=== PATIENT | female | born 1955 | race Hispanic/Latino ===

== ENCOUNTER 2021-05-11 19:03 | Emergency (ER) | payer BC, OTHER ==
--- OUTSIDE RECORDS SUMMARY | 2021-05-11 19:06 | XMS REPORT | Continuity of Care Document ---
:1955 Author Organization [facility] t Address [address] [place] [address] [address] [place] [address] Care Team Providers Name Role Phone Higinio VILLALOBOS Attending Clinician Unavailable Lab, Fam Pob I Attending Clinician Unavailable Yuliya ROY Attending Clinician YULIYA Attending Clinician Unavailable Doctor Unassigned, Name Attending Clinician Unavailable Payers Payer Name Policy Type Policy Number Effective Date Expiration Date S [facility] - [id number] 2019 00:00:00 OUT OF STATE Problems This patient has no known problems. Allergies, Adverse Reactions, Alerts Allergy Allergy Status Severity Reaction(s) Onset Inactive Treating Comm ents Source Name Type Date Date Clinician NO KNOWN Drug Active Univers ALLERGIE Class [facility] Social History Social Habit Start Date Stop Date Quantity Comments Source [facility] to [facility]-CoV-2 [facility] sure [facility] Smoking Status Start Date Stop Date Source Unknown if ever smoked [facility] Medications This patient has no known medications. Procedures This patient has no known procedures. Encounters Start End Encounter Admission Attending Care Care Encounter Source Date/Time Date/Time Type Type Clinicians Facility Department ID 2020-08-05 2020-08-[address] [facility] [id number] Univers 15:50:00 15:50:00 [facility] 2020-07-08 2020-07-[address] [facility] [id number] Univers 15:00:00 15:00:00 HANH [facility] 2020-03-20 2020-03-20 Laboratory Lab, Adc Fam Pob I [facility] [id number] Univers 17:45:26 18:05:26 Only [place], Omayemi [facility] [id number] ity of [place] [id number] Todd as Professio [phone] [facility] [address] 2020-03-20 2020-03-[address] [facility] [id number] Univers 18:00:00 18:00:00 [facility] ity of [facility] 2020-03-20 2020-03-20 Letter Doctor NANCY [id number] [facility] 00:00:00 00:00:00 (Out) Unassigned, [place] [id number] ity of [place] [facility] [id number] Todd as [phone] [place] [id number] [address] Results This patient has no known results.
[2021-05-11 20:59] LABS: Absolute Lymphocytes (CBC) 2.9 K/uL (0.7-4.9); Hematocrit 43.9 % (36.0-45.0); Lymphocytes % 26.8 % (15.3-44.8); MPV 7.9 fL (7.6-11.3); Protime INR 1.09; RBC Red Blood Cell Count 5.02 M/uL (3.86-4.86)
[2021-05-11 21:24] LABS: ALT/SGPT 31 U/L (12-78); AST/SGOT 21 U/L (15-37); Albumin 4.2 g/dL (3.4-5.0); Alkaline Phosphatase 102 U/L (45-117); BUN Blood Urea Nitrogen 16 mg/dL (7-18); Bicarbonate 27 mmol/L (21-32); Bilirubin Direct < 0.1 mg/dL (0-0.2); Bilirubin Total 0.3 mg/dL (0.2-1.0); Glucose Level 107 mg/dL (74-106); Magnesium 2.3 mg/dL (1.8-2.4); NT PRO-BNP 26 pg/mL (<125); Potassium 3.9 mmol/L (3.5-5.1); Protein, Total 8.5 g/dL (6.4-8.2); Sodium Level 141 mmol/L (136-145); Troponin (Emerg Dept Use Only) < 0.02 ng/mL (0.0-0.045)
[2021-05-11 21:41] LABS: SARS-COV-2 RT PCR NEGATIVE (NEGATIVE)
--- NOTE | 2021-05-11 21:51 | RAD REPORT ---
EXAM DESCRIPTION: CT - Head Brain Wo Cont - 05/11/2021 9:04 pm CLINICAL HISTORY: DIZZINESS Headache, hypertension, dizziness COMPARISON: <Comparisons> TECHNIQUE: All CT scans are performed using dose optimization technique as appropriate and may inclu de automated exposure control or mA/KV adjustment according to patient size. FINDINGS: No intracranial hemorrhage, hydrocephalus or extra-axial fluid collection.No areas of brai n edema or evidence of midline shift. The paranasal sinuses and mastoids are clear. The calvarium is intact. IMPRESSION: No acute intracranial abnormality.
--- NOTE | 2021-05-11 21:52 | RAD REPORT ---
EXAM DESCRIPTION: RAD - Chest Single View - 05/11/2021 9:16 pm CLINICAL HISTORY: CONGESTION Chest pain. COMPARISON: No comparisons FINDINGS: Portable technique limits examination quality. The lungs are mildly emphysematous but grossly clear. The heart is normal in size. No displaced fract ures. IMPRESSION: Mild COPD.
[2021-05-11] MEDS ORDERED: NA CHLORIDE 0.9% 500 ML ONE (22:54)
[2021-05-11] MEDS ORDERED: MECLIZINE HCL 12.5 MG TAB ONE (23:01)
[2021-05-11] MEDS ORDERED: ONDANSETRON 4 MG/2 ML VIAL ONE (23:02)
[2021-05-11] MEDS ORDERED: FAMOTIDINE 20 MG/2 ML VIAL IV ONE (23:02)
--- NOTE | 2021-05-11 23:50 | EDPHYS ---
Physician Documentation [facility] Name: Christina Villegas Age: 65 yrs Sex: Female : 1955 Arrival Date: 05/11/2021 Time: 19:10 Bed 13 Private MD: ED Physician Tolu Steven HPI: 05/11 21:47 This 65 yrs old Female presents to ER via Ambulatory with complaints of kdr Dizziness. 21:47 The patient presents with dizziness, generalized weakness, feeling off balance. Onset: kdr The symptoms/episode began/occurred suddenly, at 17:30. Context: occurred on a street or driveway, Patient states that she was walking out of a store where she had been doing some shopping when she suddenly felt dizzy and off balance. She had some nausea but no vomiting. At the same time she also had some mild hunger. She did not experience anything like this before. Since then her symptoms have improved though not entirely resolved. She still feels slightly dizzy. It is exacerbated by movement of her head but she is able to sit and move about without extensive or significant dizziness or discomfort. Modifying factors: The symptoms are alleviated by holding head still. Associated signs and symptoms: The patient has no apparent associated signs or symptoms. Severity of symptoms: At their worst the symptoms were very mild mild in the emergency department the symptoms have improved mildly. Patient's baseline: Neuro: alert and fully oriented, Motor: no deficits, Ambulation: walks without assistance, Speech: normal. The patient has not recently seen a physician. Historical: - Allergies: 20:09 No Known Allergies; bb - Home Meds: 20:09 None [Active]; bb - PMHx: 20:09 None; bb - PSHx: 20:09 None; bb - Immunization history:: Moderna x 3. - Social history:: Smoking status: Patient denies any tobacco usage or history of. ROS: 21:47 Constitutional: Negative for fever, chills, and weight loss, Eyes: Negative for injury, kdr pain, redness, and discharge, Neck: Negative for injury, pain, and swelling, Cardiovascular: Negative for chest pain, palpitations, and edema, Respiratory: Negative for shortness of breath, cough, wheezing, and pleuritic chest pain, Abdomen/GI: Negative for abdominal pain, nausea, vomiting, diarrhea, and constipation, Back: Negative for injury and pain, : Negative for injury, bleeding, discharge, and swelling, MS/Extremity: Negative for injury and deformity, Skin: Negative for injury, rash, and discoloration, Neuro: Negative for headache, weakness, numbness, tingling, and seizure activity. Psych: Negative for depression, anxiety, suicide ideation, homicidal ideation, and hallucinations, Allergy/Immunology: Negative for hives, rash, and allergies, Endocrine: Negative for neck swelling, polydipsia, polyuria, polyphagia, and marked weight changes, Hematologic/Lymphatic: Negative for swollen nodes, abnormal bleeding, and unusual bruising. Exam: 21:26 ECG was reviewed by the Attending Physician. kdr 23:50 Constitutional: This is a well developed, well nourished patient who is awake, alert, kdr and in no acute distress. Head/Face: Normocephalic, atraumatic. Eyes: Pupils equal round and reactive to light, extra-ocular motions intact. Lids and lashes normal. Conjunctiva and sclera are non-icteric and not injected. Cornea within normal limits. Periorbital areas with no swelling, redness, or edema. Neck: Trachea midline, no thyromegaly or masses palpated, and no cervical lymphadenopathy. Supple, full range of motion without nuchal rigidity, or vertebral point tenderness. No Meningismus. Chest/axilla: Normal chest wall appearance and motion. Nontender with no deformity. No lesions are appreciated. Cardiovascular: Regular rate and rhythm with a normal S1 and S2. No gallops, murmurs, or rubs. Normal PMI, no JVD. No pulse deficits. Respiratory: Lungs have equal breath sounds bilaterally, clear to auscultation and percussion. No rales, rhonchi or wheezes noted. No increased work of breathing, no retractions or nasal flaring. Abdomen/GI: Soft, non-tender, with normal bowel sounds. No distension or tympany. No guarding or rebound. No evidence of tenderness throughout. Back: No spinal tenderness. No costovertebral tenderness. Full range of motion. Skin: Warm, dry with normal turgor. Normal color with no rashes, no lesions, and no evidence of cellulitis. MS/ Extremity: Pulses equal, no cyanosis. Neurovascular intact. Full, normal range of motion. Neuro: Awake and alert, GCS 15, oriented to person, place, time, and situation. Cranial nerves II-XII grossly intact. Motor strength 5/5 in all extremities. Sensory grossly intact. Cerebellar exam normal. Normal gait. Psych: Awake, alert, with orientation to person, place and time. Behavior, mood, and affect are within normal limits. Vital Signs: 20:06 BP 176 / 74; Pulse 78; Resp 16 S; Temp 98.6(TE); Weight 70.31 kg (R); Height 5 ft. 6 bb in. (167.64 cm) (R); Pain 0/10; 20:30 BP 182 / 74; Pulse 82; Resp 10; Temp 98.4; Pulse Ox 100% 0 lpm ; Weight 72.57 kg; sv1 Height 5 ft. 2 in. (157.48 cm); Pain 0/10; 22:00 BP 143 / 63; Pulse 76; Resp 11; Pulse Ox 100% 0 lpm ; Pain 0/10; sv1 23:00 BP 138 / 63; Pulse 71; Resp 11; Pulse Ox 100% 0 lpm ; Pain 0/10; sv1 23:00 BP 139 / 60; Pulse 82; Resp 11; Temp 98.5; Pulse Ox 100% 0 lpm ; Pain 0/10; sv1 20:30 Body Mass Index 29.26 (72.57 kg, 157.48 cm) sv1 MDM: 23:49 Patient medically screened. kdr 23:50 Data reviewed: vital signs, nurses notes, lab test result(s), radiologic studies. kdr Counseling: I had a detailed discussion with the patient and/or guardian regarding: the historical points, exam findings, and any diagnostic results supporting the discharge/admit diagnosis, lab results, radiology results, the need for outpatient follow up. ED course: Patient symptoms have completely resolved at the time of discharge. Patient was happy with the care provided and the plan for discharge and follow-up. 05/11 20:28 Order name: Basic Metabolic Panel kdr 05/11 20:28 Order name: CBC with Diff; Complete Time: 21:17 kdr 05/11 20:28 Order name: LFT's kdr 05/11 20:28 Order name: Magnesium kdr 05/11 20:28 Order name: NT PRO-BNP kdr 05/11 20:28 Order name: PT-INR; Complete Time: 21:17 kdr 05/11 20:28 Order name: Troponin (emerg Dept Use Only); Complete Time: 22:02 kdr 05/11 20:28 Order name: XRAY Chest (1 view); Complete Time: 22:02 kdr 05/11 20:28 Order name: Basic Metabolic Panel; Complete Time: 22:02 EDMS 05/11 20:28 Order name: Liver (Hepatic) Function; Complete Time: 22:02 EDMS 05/11 20:28 Order name: Magnesium; Complete Time: 22:02 EDMS 05/11 20:28 Order name: NT PRO-BNP; Complete Time: 22:02 EDMS 05/11 20:49 Order name: CT Head Brain wo Cont; Complete Time: 22:02 kdr 05/11 20:49 Order name: COVID-19/FLU A+B (Document "Date of Onset" if Symptomatic); Complete Time: kdr 22:02 05/11 20:28 Order name: EKG; Complete Time: 20:29 kdr 05/11 20:28 Order name: Cardiac monitoring; Complete Time: 20:28 kdr 05/11 20:28 Order name: EKG - Nurse/Tech; Complete Time: 20:28 kdr 05/11 20:28 Order name: IV Saline Lock; Complete Time: 20:42 kdr 05/11 20:28 Order name: Labs collected and sent; Complete Time: 20:42 kdr 05/11 20:28 Order name: O2 Per Protocol; Complete Time: 20:42 kdr 05/11 20:28 Order name: O2 Sat Monitoring; Complete Time: 20:42 kdr EC:26 Rate is 78 beats/min. Rhythm is regular, Sinus Rhythm with Right bundle branch block. kdr QRS [place] is Normal. IL interval is normal. QRS interval is normal. QT interval is normal. Administered Medications: 22:57 Drug: NS 0.9% 500 ml Route: IV; Rate: bolus; Site: right antecubital; sv1 05/12 00:01 Follow up: IV Status: Completed infusion; IV Intake: 500ml sv1 05/11 23:10 Drug: Zofran (Ondansetron) 4 mg Route: IVP; Site: right antecubital; sv1 05/12 00:06 Follow up: Response: Nausea is decreased sv05/11 23:10 Drug: Pepcid (famotidine) 20 mg Route: IVP; Site: right antecubital; sv1 05/12 00:06 Follow up: Response: No adverse reaction sv1 05/11 23:10 Drug: Meclizine 25 mg Route: PO; sv1 05/12 00:05 Follow up: Response: No adverse reaction; Marked relief of symptoms sv1 Disposition Summary: 05/11/21 23:49 Discharge Ordered Location: Home kdr Problem: new kdr Symptoms: are resolved kdr Condition: Stable kdr Diagnosis - Dizziness and giddiness kdr Followup: kdr - With: Private Physician - When: 2 - 3 days - Reason: If symptoms return, Further diagnostic work-up, Recheck today's complaints, Continuance of care, Re-evaluation by your physician Discharge Instructions: - Discharge Summary Sheet kdr - Dizziness, [id number]-Awjj kdr Forms: - Medication Reconciliation Form kdr - Thank You Letter kdr - Antibiotic Education kdr - Prescription Opioid Use kdr Prescriptions: - Meclizine 25 mg Oral Tablet - take 1 tablet by ORAL route every 8 hours As needed; 30 tablet; Refills: 0, kdr Product Selection Permitted Signatures: Dispatcher [employer] EDTolu Crocker MD MD kdr Chelle Jack RN RN bb Tutu Strickland RN RN sv1
--- NOTE | 2021-05-11 23:50 | ER ---
Nurse's Notes [facility] Name: Christina Villegas Age: 65 yrs Sex: Female : 1955 Arrival Date: 05/11/2021 Time: 19:10 Bed 13 Private MD: Diagnosis: Dizziness and giddiness Presentation: 05/11 20:06 Chief complaint: Patient states: she had a really bad dizzy spell which started at 1730 bb it seems to be a little better but now she is feeling her pulse up in her neck. Coronavirus screen: At this time, the client does not indicate any symptoms associated with coronavirus-19. Ebola Screen: No symptoms or risks identified at this time. 20:06 Method Of Arrival: Ambulatory bb 20:09 Note pt states it was like the room was spinning [place] up bb against the wall she couldn't even make it to the car. Triage Assessment: 20:09 General: Appears in no apparent distress. Behavior is calm, cooperative. Pain: Denies bb pain. Neuro: Level of Consciousness is awake, alert, obeys commands, Oriented to person, place, time, situation. Cardiovascular: Capillary refill < 3 seconds Patient's skin is warm and dry. Respiratory: Respiratory effort is even, unlabored, Respiratory pattern is regular. GI: No signs and/or symptoms were reported involving the gastrointestinal system. Derm: Skin is pink, warm \\T\\ dry. Musculoskeletal: Circulation, motion, and sensation intact. Historical: - Allergies: 20:09 No Known Allergies; bb - Home Meds: 20:09 None [Active]; bb - PMHx: 20:09 None; bb - PSHx: 20:09 None; bb - Immunization history:: Moderna x 3. - Social history:: Smoking status: Patient denies any tobacco usage or history of. Screenin:00 Abuse screen: Denies threats or abuse. Nutritional screening: No deficits noted. sv1 Tuberculosis screening: No symptoms or risk factors identified. Fall Risk None identified. Assessment: 05/12 00:15 Reassessment: All labs and imaging completed. No adverse reaction to meds. Patient sv1 states she feels much better. Driven home by her spouse.. Vital Signs: 05/11 20:06 BP 176 / 74; Pulse 78; Resp 16 S; Temp 98.6(TE); Weight 70.31 kg (R); Height 5 ft. 6 bb in. (167.64 cm) (R); Pain 0/10; 20:30 BP 182 / 74; Pulse 82; Resp 10; Temp 98.4; Pulse Ox 100% 0 lpm ; Weight 72.57 kg; sv1 Height 5 ft. 2 in. (157.48 cm); Pain 0/10; 22:00 BP 143 / 63; Pulse 76; Resp 11; Pulse Ox 100% 0 lpm ; Pain 0/10; sv1 23:00 BP 138 / 63; Pulse 71; Resp 11; Pulse Ox 100% 0 lpm ; Pain 0/10; sv1 23:00 BP 139 / 60; Pulse 82; Resp 11; Temp 98.5; Pulse Ox 100% 0 lpm ; Pain 0/10; sv1 20:30 Body Mass Index 29.26 (72.57 kg, 157.48 cm) sv1 ED Course: 19:10 Patient arrived in ED. bp1 20:09 Arm band placed on Patient placed in waiting room, Patient notified of wait time. EKG bb completed in triage. Results shown to MD. 20:17 Tolu Steven MD is Attending Physician. kdr 20:28 EKG done, by ED staff, reviewed by Tolu Steven MD. lt3 20:41 Initial lab(s) drawn, by co, sent to lab. Inserted saline lock: 22 gauge in right lt3 antecubital area, using aseptic technique. 20:54 Tutu Strickland, RN is Primary Nurse. sv1 20:54 COVID-19/FLU A+B (Document "Date of Onset" if Symptomatic) Sent. sv1 20:54 Magnesium Sent. sv1 20:54 NT PRO-BNP Sent. sv1 20:54 Liver (Hepatic) Function Sent. sv1 20:54 Basic Metabolic Panel Sent. sv1 20:54 Basic Metabolic Panel Sent. sv1 20:54 LFT's Sent. sv1 20:54 Magnesium Sent. sv1 20:54 NT PRO-BNP Sent. sv1 20:55 CBC with Diff Sent. sv1 20:55 PT-INR Sent. sv1 20:55 Troponin (emerg Dept Use Only) Sent. sv1 21:04 CT Head Brain wo Cont In Process Unspecified. EDMS 21:17 XRAY Chest (1 view) In Process Unspecified. EDMS 23:00 Patient has correct armband on for positive identification. Placed in gown. Bed in low sv1 position. Call light in reach. Side rails up X2. Adult w/ patient. 23:00 No provider procedures requiring assistance completed. IV discontinued. sv1 Administered Medications: 22:57 Drug: NS 0.9% 500 ml Route: IV; Rate: bolus; Site: right antecubital; sv1 05/12 00:01 Follow up: IV Status: Completed infusion; IV Intake: 500ml sv1 05/11 23:10 Drug: Zofran (Ondansetron) 4 mg Route: IVP; Site: right antecubital; sv1 05/12 00:06 Follow up: Response: Nausea is decreased sv1 05/11 23:10 Drug: Pepcid (famotidine) 20 mg Route: IVP; Site: right antecubital; sv1 05/12 00:06 Follow up: Response: No adverse reaction sv1 05/11 23:10 Drug: Meclizine 25 mg Route: PO; sv1 05/12 00:05 Follow up: Response: No adverse reaction; Marked relief of symptoms sv1 Intake: 00:01 IV: 500ml; Total: 500ml. sv1 Outcome: 05/11 23:00 Discharged to home sv1 Condition: good Discharge instructions given to patient, family. 23:49 Discharge ordered by . kdr 05/12 00:17 Patient left the ED. sv1 Signatures: Dispatcher [employer] EDMS Tolu Steven MD MD kdr Ballard, Brenda RN RN Lorna Ornelas [facility] Tutu Strickland RN RN sv1
[2021-05-12 00:37] VITALS: O2SAT 100
[2021-05-12 00:41] VITALS: BP 139/60; TEMP 98.5
== END 2021-05-12 00:17 | disposition home or self-care (01) ==
LOC: ER 19:03
DX: R42 Dizziness and giddiness (principal)
CPT/HCPCS: 96361; 93005; 85025; 80048; 36415; 83735; 85610; 80076; 84484; 83880; 0240U; 70450; 71045; 96375; 96374; 99284; J7040; J2405; J8597